=== PATIENT | female | born 2000 | race Two or more races ===

== ENCOUNTER 2025-05-16 11:04 | Emergency (ER) | payer OTHER, SELFPAY ==
[2025-05-16 11:27] VITALS: BP 156/119; PULSE 87; TEMP 36.7; O2SAT 94; BMI 31.2
[2025-05-16 13:10] VITALS: BP 140/92
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
[2025-05-16] MEDS: METHOCARBAMOL 500 MG TABLET PO (13:35)
[2025-05-16] MEDS: IBUPROFEN 600 MG TABLET PO (13:35)
--- OUTSIDE RECORDS SUMMARY | 2025-05-16 13:39 | XMS_ITS | Data Portability ---
Author Organization CHELY - Nile Duncan [facility], [facility]_PROV OP DIAB EDUCATION_NOVI Address [address] [address] [address] [place] [address] Assessment Encounter Date Assessment Date Assessment LastModified by Organization Details LastModified Time 10/02/2024 10/02/2024 Risks of Mirena discussed, mech of action discussed, infection risk confined to first 3 months especially the first 3 weeks after placement. Faculty: Resident's notes reviewed, pt seen and examined, agree with findings and plans Wellington Lara MDlvoutsosNot uhztunlep45/20/2025 16:17:10/09/2024Faculty: Resident's notes reviewed, pt seen and examined, agree with findings and plans, present for entire procedure Wellington Lara MDlvoutsosNot amjlzvhxj91/27/2025 14:31:Faculty: Resident's notes reviewed, pt seen and examined, agree with findings and plans Wellington Lara MD lvoutsosNot ohmlcghtm94/17/2025 14:49:12 Plan of Treatment Reminders Order DateSubmit DateProviderLast Modified ByOrganization DetailsLast Modified TimeDetailsAppointmentsNone recorded.LabNone recorded.ReferralNone recorded. ProceduresNone recorded.SurgeriesNone recorded.ImagingNone recorded.Medication OrdersMirena 21 mcg/24 hr (up to 8 years) 52 mg intrauterine zvvmsu9310/04/2024 10/09/20247954zrdiub0Vny ynemcxnpe21/07/2025 10:36:56 Patient TargetsNo targets recorded. Patient InstructionsNo instructions recorded. Reason for Referral None Reported. Results Created Date Observation Date Name Description Value Unit Range Abnormal Flag Note LastModifiedBy Organization Detail LastModifiedTime 08/07/2024 08/08/2024 CBC, PLATELET, N O DIFFERENTIAL WBC 9.2 x10e3/uL 3.4-10.8 normal Not AvailableLab[facility] ([facility]) [address] [facility], [place], [address], Ph ([phone] 04:27:40 5CBC, PLATELET, NO DIFFERENTIALRBC4.41r03d0/uL3.77-5.28normal Not AvailableLab[facility] ([facility]) [address] [facility] [place], [address], Ph ([phone] 04:27:40 5CBC, PLATELET, NO WKCCEUBLLRYOhgdoutguws93.9g/dL11.1-15.9 normalNot AvailableLab[facility] ([facility]) [address] [facility], [place], [address], Ph ([phone] 04:27:40 5CBC, PLATELET, NO BBZOQZXEFORHjstipimwvx78.1%34.0-46.6normal Not AvailableLab[facility] ([facility]) [address] [place], [address], Ph ([phone] 04:27:40 5CBC, PLATELET, NO IXOEEZIXOWAHLOR64yF87-28qpermfChz AvailableLabcorp ([facility]) [address] [place], [address], Ph ([phone] 04:27:40 5CBC, PLATELET, NO EETTAVTOVGNXQYM74.1pg26.6-33.0normalNot AvailableLab[facility] ([facility]) [address] [place], [address], Ph ([phone] 04:27:40 5CBC, PLATELET, NO SYYTADDHSEMONKDO41.0g/dL31.5-35.7normalNot AvailableLab[facility] ([facility]) [address] [place], [address], Ph ([phone] 04:27:40 5CBC, PLATELET, NO KEBZHMHOBJKZCOD92.7%11.7-15.4Not Available [facility] ([facility]) [address] [place], [address], Ph ([phone] 04:27:40 5CBC, PLATELET, NO ZPURVULXBJUAxehpjvkup760q31w5/mR423-299 normalNot AvailableLab[facility] ([facility]) [address] [place], [address], Ph ([phone] 04:27:40 5CBC, PLATELET, NO DIFFERENTIALNRBCNPNot AvailableLab[facility] ([facility]) [address] [place], [address], Ph ([phone] 04:27:40 5CT, NG, TRICH VAG BY NAAchlamydia by NAANEGATIVEnegativeNot AvailableLab[facility] ([facility]) [address] [place], [address], Ph ([phone] 16:09:06 5CT, NG, TRICH VAG BY NAAgonococcus by NAANEGATIVEnegativeNot AvailableLab[facility] ([facility]) [address] [place], [address], Ph ([phone] 16:09:06 5CT, NG, TRICH VAG BY NAAtrich vag by NAANEGATIVEnegativeNot AvailableLab[facility] ([facility]) [address] [place], [address], Ph [phone] 16:09:06 Result Notes None recorded. Problems Name Problem SNOMED Code Status Onset Date Resolution Date Notes Provider Name and Address Organization Details Recorded Time 03508872 Completed 03/11/2024 08/24/2024 ROXANNA ZELAYA MD [address] [place], [address], [facility]08/24/2024 06:04:57Late entry into [id number] Nqtece6403/11/2024arelis Coffey DO [address] [place], [address], [facility]03/11/2024 15:42:42High risk ptjkwhier76699718Qjozvixcc 03/11/2024arelis Coffey DO [address] [place], [address], [facility]03/11/2024 15:41:10High risk aahiwjvor29565818Sqjxsp 4Carelis Coffey DO [address] [place], [address], [facility]03/11/2024 15:41:10Group B Streptococcus carrier [id number]/27/2024Urine GBS + on urinalysis at [facility] 01/08, requested records 03/11 for sensitivities due to penicillin allergy 2TM Urine Culture GBS+ for colonization Will plan to treat with Ancef (secondary to PCN allergy)Tosha Coffey DO [address] [place], [address], [facility]05/13/2024 13:40:27Group B Streptococcus carrier [id number]/27/2024Urine GBS + on urinalysis at [facility] 01/08, requested records 03/11 for sensitivities due to penicillin allergy 2TM Urine Culture GBS+ for colonization Will plan to treat with Ancef (secondary to PCN allergy)Tosha Coffey DO [address] [place], [address], [facility]05/13/2024 13:40:27Insufficient [id number] Ykgepo6703/11/2024New OB visit on 03/11 at 16.2 weeks, 1 prior visit at [facility] on 02/07Mehudson Benjaminmer DO [address] [place], [address], [facility]04/08/2024 16:30:35 Problem Notes None recorded. Procedures Surgical History Date Name Laterality Status Provider Name and Address Organization Details Recorded Time 10/09/2024 Mirena insertion arm completedCamgracia Lao, DO [address] [place], [address], [facility]10/09/2024 14:11:01003/11/2024CM - Brief Face to Face VisitcompletedCorrina Sinha, DIRECTOR INFORMATION SECURITY [address] [place], [address], [facility]03/11/2024 15:20:57003/11/2024OB Ultrasound 2nd Trimester completedCalliolayinka Alexx DO [address] [place], [address], [facility]03/11/2024 15:25:5307ate of Last Pap Smear completedCalpetra Hutchinsonl DO [address] [place], [address], [facility]03/11/2024 14:11:04007/16/2019Reconstruction of nose completedCallie Alexx DO [address] [place], [address], [facility]03/11/2024 14:14:17007/16/2017tonsillectomycompletedCallie Alexx DO [address] [place], [address], [facility]03/11/2024 14:14:3401ppendectomycompletedCallie Alexx DO [address] [place], [address], [facility]03/11/2024 14:13:42 Imaging Results None recorded. Procedure Notes None recorded. Medical Equipment None Reported. Allergies Allergen ID Allergen Name Allergen Category Reaction Reaction Severity Criticality Documentation Date Start Date Code Code System Note Provider Name and Address Organization Details Recorded Time 726178 Product containing penicillin (product) m edication Not available Not available Not mtxcyegbd08/27/0758728315570MCUQTYrujoKnttlt Angell DO [address], [place], [address], [facility]03/11/2024 14:22:57 Medications Name Sig Start Date Stop Date Status Note LastModified by Organization Details LastModified Time Mirena 21 mcg/24 hr (up to 8 years) 52 mg intrauterine device Take 1 device by intrauterine route. 10/20/2024 activeNot AvailableNot AvailableNot Availablemethocarbamol 500 mg tablettake 1 tablet by mouth once daily03/11/2024ompletedNot AvailableNot AvailableNot Availableacetaminophen 325 mg tabletactiveNot AvailableNot AvailableNot Availablecetirizine 10 mg tablettake 1 tablet by mouth once daily03/11/2024 completedNot AvailableNot AvailableNot Availablesucralfate 1 gram tablettake 1 tablet by mouth twice a day 30 MINUTES PRIOR TO MEALS03/11/2024ompletedNot AvailableNot AvailableNot Availableondansetron HCl 4 mg tablettake 1 tablet by mouth once daily03/11/2024ompletedNot AvailableNot AvailableNot Available famotidine 40 mg tablettake 1 tablet by mouth twice a day 30 MINUTES PRIOR TO MEALS03/11/2024ompletedNot AvailableNot AvailableNot Availableterconazole 0.8 % vaginal cream03/11/2024ompletedNot AvailableNot AvailableNot Available metronidazole 500 mg tabletTAKE 1 TABLET BY MOUTH EVERY 12 HOURS FOR 7 DAYS 03/11/2024ompletedNot AvailableNot AvailableNot Availablefamotidine 20 mg tabletTake 1 tablet twice a day by oral route.activeNot AvailableNot Available Not Availabledocusate sodium 100 mg capsuleactiveNot AvailableNot AvailableNot Availablemupirocin 2 % topical daikczii47/27/2024ompletedNot AvailableNot AvailableNot Availableibuprofen 600 mg tabletactiveNot AvailableNot AvailableNot Availablefluticasone propionate 50 mcg/actuation nasal spray,suspensioninstill 1 spray into each nostril once daily03/11/2024ompletedNot AvailableNot Available Not AvailableUnisom (doxylamine) 25 mg tabletTake 1 tablet every day by oral route.07/02/2024ctiveNot AvailableNot AvailableNot AvailableTylenol Extra Strength 500 mg tabletTake 2 tablets every 6 hours by oral route as needed. 04/10/2024ctiveNot AvailableNot AvailableNot Availableenoxaparin 40 mg/0.4 mL subcutaneous syringeactiveNot AvailableNot AvailableNot AvailableFeroSul 325 mg (65 mg iron) tabletactiveNot AvailableNot AvailableNot AvailablePrenatal 28 mg- 800 mcg tabletTake 1 tablet every day by oral route, for .03/11/2024 activeNot AvailableNot AvailableNot Availablepyridoxine (vitamin B6) 10 mg tabletTake 1 tablet every day by oral route.07/02/2024ctiveNot AvailableNot AvailableNot Available Vitals Date Recorded Body height Body mass index (BMI) Body weight Heart rate Systolic And Diastolic Provider Name and Address Organization Details Last Updated DateTime 08/21/2024 152.4 cm 32.3 kg/m2 06720.82 g 121 /min 141/91 mm[Hg] [facility] 08/21/2024 14:24:15 Date Recorded Body height Body mass index (BMI) Body weight Heart rate Systolic And Diastolic Provider Name and Address Organization Details Last Updated DateTime 09/03/2024 152.4 cm 28.1 kg/m2 61113.3 g 96 /min 119/75 mm[Hg] Nakia Ifeoma [facility] 09/03/2024 14:19:24 Date Recorded Body height Body mass index (BMI) Body weight Heart rate Systolic And Diastolic Provider Name and Address Organization Details Last Updated DateTime 10/02/2024 152.4 cm 28.3 kg/m2 11100.25 g 78 /min 120/83 mm[Hg] [facility] 10/02/2024 15:57:56 Date Recorded Body height Body mass index (BMI) Body weight Heart rate Systolic And Diastolic Provider Name and Address Organization Details Last Updated DateTime 10/09/2024 152.4 cm 28.1 kg/m2 67135.3 g 102 /min 138/84 mm[Hg] [facility] 10/09/2024 13:33:14 Date Recorded Body height Body mass index (BMI) Body weight Heart rate Systolic And Diastolic Provider Name and Address Organization Details Last Updated DateTime 10/30/2024 152.4 cm 28.5 kg/m2 83233.49 g 94 /min 117/80 mm[Hg] Chata Odom [facility] 10/30/2024 13:59:32 Social History Question Answer Notes LastModified by Organization D etails LastModified Time Tobacco Smoking Status Never Smoker Mabel araujo, [facility]07/22/2024 16:04:28Last SDOH Assessment Date:03/11/2024 API-27Information not /27/2024In The Last 12 Months, Was There A Time When You Needed To See A Doctor But Could Not Because Of Cost?Ixggqmwo051 Information not xdoumtyaw39/27/2024In The Past 12 Months Has The Electric, Gas, Oil, Or Water Company Threatened To Shut Off Services In Your Home?NoAPI-27 Information not hlmbvpnmy45/27/2024In The Last 12 Months, Did You Ever Eat Less Than You [place] You Should Because There Wasn???t EnoughMoney For Food?NoAPI-27 Information not zdxjgasew81/27/2024o You Have The Household Supplies You Need? Things Like Clothes, Shoes, Blankets, Mattresses, Diapers, Toothpaste, And Shampoo?YesAPI-27Information not ecifweqwp76/27/2024re Any Of Your Needs Urgent?NoAPI-27Information not lmetcxkay24/27/2024o Problems Caring For Children Or Other Family Members Make It Difficult For You To Work Or Study?No API-27Information not /27/2024In The Last 12 Months Did You Skip Medications To Save Money?NoAPI-27Information not bihfifxya73/27/2024In The Last 12 Months, Have You Ever Had To Go Without Health Care Because You Didn???t Have A Way To Get There?NoAPI-27Information not kdzlpywyp94/27/2024re You Worried That In The Next 2 Months You May Not Have Stable Housing?NoAPI-27 Information not ubrgvfnta56/27/2024o You Feel Physically And Emotionally Unsafe Where You Currently Live?Ngmaofidc914Rxepwlzvpmo not jvcgavdlg62/27/2024 You Want Help Finding Or Keeping Work Or A Job?NoAPI-27Information not available 03/11/2024 You Want Help With School Or Training? For Example, Starting Or Completing Job Training Or Getting A High School Diploma, GED, Or Equivalent?No API-27Information not xsjzijkvg87/27/2024o You Often Feel Lonely?NoAPI-27 Information not ituwegfqq77/27/2024o You Want Help With Any Of Your Needs?No API-27Information not rppfimgff35/27/20240. Information Provided By :Patient API-27Information not dvsysdqib38/27/98608o) Does The Patient/Caregiver/Family Report The PATIENT Having Any Of These NEW Symptoms Such As Cough?NoAPI-27 Information not nolwqxfjl95/27/02494c) Does The Patient/Caregiver/Family Report The PATIENT Having Any Of These NEW Symptoms Such As Diarrhea?NoAPI-27 Information not phdmtaymg85/27/08917v) Does The Patient/Caregiver/Family Report The PATIENT Having Any Of These NEW Symptoms Such As Fever/chills?NoAPI-27 Information not /27/01750l) Does The Patient/Caregiver/Family Report The PATIENT Having Any Of These NEW Symptoms Such As Nasal Congestion/Runny Nose?NoAPI-27Information not lcduhvmhh97/27/30644b) Does The Patient/Caregiver/Family Report The PATIENT Having Any Of These NEW Symptoms Such As Respiratory Distress (acute)?NoAPI-27Information not adyaachib19/27/2024 1f) Does The Patient/Caregiver/Family Report The PATIENT Having Any Of These NEW Symptoms Such As Rash?NoAPI-27Information not xsqsedpdz48/27/25657o) Does The Patient/Caregiver/Family Report The PATIENT Having Any OTHER NEW Symptoms (list)? If No NEW Symptoms, Enter ???No???NoAPI-27Information not available 03/11/2024What Is Your Relationship Status?SingleAPI-27Information not available 03/11/2024 Sex: Female Functional Status None recorded. Mental Status None recorded. Family History Relationship Description Onset Age of this Age Resolved Age Notes LastModified by Organization Details LastModified Time Father Diabetes mellitus Unsure if T1 or 2, paternal rydptiomdlf5Tnt peppphzym11/27/2024 14:12:41 Medical History Condition Response allergies Y urinary tract infection Y bladder problems Y Gynecological History Statement/Question Response Abnormal Pap N Flow Moderate Date of LMP 11/18/2023 History of sexual abuse? N Number of Sexual Partners in Lifetime Fe wer than 5 On BCP's at Conception? N STIs/STDs N HPV Vaccine Age at First Sexual Ultcusgjjdh06Wspdrkjq of Flow (days)5Age at Qefbgkgu98Dfv at First Ehcyr13Kzewmdhof of Cycle (Q days)Sexually Active?YMenses MonthlyNDate of Last Pap Smear02/08/2024LMPApproximateCrampsYResult of Last PapWNL Obstetrics History GPAL:G 1 P 1 0 0 1 Type Value Full Term 1 Living 1 Total 1 Immunizations Vaccine Type Date Status Note Provider Nam e and Address Organization Details Recorded Time Tdap 07/03/2024 completed Jacinto Colón MD [address], [place], [address], [facility]07/11/2024 16:57:43Influenza, MDCK, quadrivalent, PF 07/02/2024ompleteThompson Colón MD [address], [place], [address], [facility]07/11/2024 16:57:43 Past Encounters Encounter ID Performer Location Encounter Start Date Encounter Closed Date Diagnosis/Indication Diagnosis SNOMED-CT Code Diagnosis ICD10 Code Diagnosis IMO Codes Diagnosis Note [id number] Shandra Chaudhry MD [facility] [address] [address] 03/11/2024 13:53:05 03/11/2024 15:35:00 High risk 67475510 O09.92 - 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 Send to [facility] for dating.- Vitals: 113/76- BMI: 27.9- STI: 1TM urine G/C/T negative ([facility] 01/08) - Rubella:- Rh:- Hgb: *TM *- Electrophoresis:- Pap: Normal 01/08- Glucose:- Imaging:- Genetics:- msAFP:- Vaccinations:- Urine GBS + on urinalysis at [facility] 01/08, requested records 03/11 for sensitivities due to penicillin allergy - New OB labs, Panorama, Horizon collected today- Referral to [facility] for dating US given RTC 4 weeks, msAFP at next visitAntenatal tvzzydmkw297889671A77.89 If patient has a history of a positive result on one of these, use the diagnosis to order the test,not this screening code. I.E. if a patient has anemia diagnosis, use that diagnosis code to order the CBC.Reproductive care management 517304431R25.430 Gestation period, 16 zqfmn85879371H6U.16 Insufficient bvnu5895528302229P25.32 New OB visit on 03/11 at 16.2 weeks, 1 prior visit at [facility] on 02/07Group B streptococcus carrier complicating ruhhidefs159800749561901W73.820 Urine GBS + on urinalysis at [facility] 01/08, requested records 03/11 for sensitivities due to penicillin [id number] [place], [facility] [address] [address] 03/11/2024 14:55:32003/11/2024 15:23:21Ughbulabv19252618L61.1 Xjaeecqcmi320381418V86.89 [id number] Clarke, [facility] [address] [address] 04/10/2024 10:58:39004/10/2024 12:05:13High risk nedeyvkil71273589T34.92 - 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 sdtylcdrc357409217424779O28.820 - Urine culture (03/11): 0723-8145 STREP AGALACTIAE- +UA at [facility] 01/08- Denies any dysuria or hematuria- Will plan to treat with Ancef (secondary to PCN allergy during labor) prsxxgtzc254871295N90.3 Gestation period, 19 anvyw71771388O9B.19 [id number] Chaudhry [facility] [address] [address] 05/13/2024 13:00:261 14:26:53High risk vvrrizkkt29158558U02.892 D/t SDoH, GBS carrier - Dating: STEVEN 08/30/24 based on biometry at [facility] on 03/14/40- Vitals:- BMI: 27.9- STI: 1TM neg ([facility] records scanned into chart)- Rubella: equivocal- Rh: Pos- Hgb: 1TM 12.5- Electrophoresis: AA- Pap: 01/08: NILM ([facility] records scanned into chart)- Glucose: 1hr GTT collected today- Imaging: complete and WNL, EFW 36%, anterior placenta, no previa, 3VC- Genetics: LR male, horizon 10/17 neg- msAFP: Neg- Vaccinations:Pt considering ABC delivery 1hr GTT todayRTC 4 weeks, 28 week labs and vaccines at next visitGroup B streptococcus carrier complicating pfzjtoldw059348912673080J43.820 - Urine culture (03/11): 2876-7239 STREP AGALACTIAE- +UA at [facility] 01/08- Denies any dysuria or hematuria- Will plan to treat with Ancef (secondary to PCN allergy - rash - low risk for anaphylaxis) duringlaborAntenatal screening 189699053T11.89 O09.892 Gestation period, 24 xhuqg908310860S5Y.24 [id number] Thomas, [facility] [address] [address] 07/02/2024 14:37:10109/02/2023 15:45:15High risk noezhzucr72838247W69.892 D/t SDoH, GBS carrier Dating: STEVEN 08/30/24 based on biometry at [facility] on 03/14/24Vitals: 133/84, elevated from previous baselineBMI: 27.9STI: 1TM neg ([facility] records scanned into chart) Rubella: Equivocal (will need MMR at delivery)Rh: PositiveHgb: 1TM 12.5, 2TM 11.5Electrophoresis: AAPap: 01/09/24: NILM ([facility] records scanned into chart) Glucose: 1 hr GTT wnl (100)Anatomy US (04/15): complete, wnl, EFW36%, anterior placenta, no previa, 3VC, MALLORY wnl, CL 34.6Genetics: 10/17 negative, LR M, msAFP negVaccinations: Flu and Tdap administered today TDap and Influenza vaccinations offered today, patient yeyokqzij9BS labs drawn today. RTC 2 weeks. 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 cidjlvbzz157445769795854C78.820 - Urine culture (03/11): 1290-8618 STREP AGALACTIAE- +UA at [facility] 01/08- Denies any dysuria or hematuria- Will plan to treat with Ancef (secondary to PCN allergy - rash - low risk for anaphylaxis) duringlaborAdministration of diphtheria, pertussis, and tetanus ynpjdxr748022569G50 Administration of influenza wrgauxu99185113R16 Routine htbj820043603J60.90 Nausea and vomiting in fukeobfll0336812958A81.9 Daily nausea, no ibyidlkkLojwteilv13816785D85 Daily heartburn, especially when laying downGestation period, 31 kccui11108010 Z3A.31 Lower abdominal ewkc06551078Y79.30 Right sided abdominal painLikely 2/2 movementDiscussed Tylenol and warm baths. May try hot packs but not on belly.[id number] [facility] [address] [address] 07/22/2024 15:58:55007/22/2024 17:20:19High risk zshjdwidl20272215S45.892 D/t SDoH, GBS carrier Dating: STEVEN 08/30/24 based on biometry at [facility] on 03/14/24Vitals: 133/84, elevated from previous baselineBMI: 27.9STI: 1TM neg ([facility] records scanned into chart), 3TM negRubella: Equivocal (will need MMR at delivery)Rh: PositiveHgb: 1TM 12.5, 2TM 11.5Electrophoresis: AAPap: 01/09/24: NILM ([facility] records scanned into chart)Glucose: 1 hr GTT wnl (100)Anatomy US (04/15): complete, wnl, EFW36%, anterior placenta, no previa, 3VC, MALLORY wnl, CL 34.6Genetics: 4/4 negative, LR M, msAFP negVaccinations: Flu and Tdap administered 07/02, discussed RSV at outside pharmacy, patient agreeable RTC 2 weeks. for G/C/TGroup B streptococcus carrier complicating [id number] - Urine culture (03/11): 2959-2616 STREP AGALACTIAE- +UA at [facility] 01/08- Denies any dysuria or hematuria- Will plan to treat with Ancef (secondary to PCN allergy - rash - low risk for anaphylaxis) tzaeuxjbivoNotherffv94179768W65 Daily heartburn, especially when laying downRepeat rx PepcidGestation period, 34 sxobt62070057Q0N.34 [id number] Portillo [facility] [address] [address] 08/07/2024 15:22: 16:37:39High risk itnwerhps85777535B61.892 High risk due to SDoH. Dating: STEVEN 08/30/24 based on biometry at [facility] on 03/14/24.Vitals: 133/84, elevated from previous baselineBMI: 27.9STI: 1TM neg ([facility] records scanned into chart), 3TM negRubella: Equivocal (will need MMR at delivery)Rh: PositiveHgb: 1TM 12.5, 2TM 11.5Electrophoresis: AAPap: 01/09/24: NILM ([facility] records scanned into chart)Glucose: 1 hr GTT wnl (100)Anatomy US (04/15): complete, wnl, EFW36%, anterior placenta, no previa, 3VC, MALLORY wnl, CL 34.6Genetics: 4/4 negative, LR M, msAFP negVaccinations: Flu and Tdap administered 07/02, discussed RSV at outside pharmacy, patient agreeable GCT and 3TM Hgb collected today. 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 [id number] - Urine culture (03/11): 4803-3345 STREP AGALACTIAE- +UA at [facility] 01/08- Denies any dysuria or hematuria- Will plan to treat with Ancef (secondary to PCN allergy - rash - low risk for anaphylaxis) [id number] Daily heartburn, especially when laying downRepeat rx PepcidAntenatal screening [id number] Gestation period, 36 onjuq66734328Z8X.36 [id number] Voutsos, [facility] [address] [address] 08/21/2024 13:40:23008/21/2024 15:26:08High risk ssvpgnccl75876595N01.892 High risk due to SDoH. Dating: STEVEN 08/30/24 based on biometry at [facility] on 03/14/24.BMI: 27.9STI: 1TM neg ([facility] records scanned into chart), 3TM negRubella: Equivocal (will need MMR at delivery)Rh: PositiveHgb: 1TM 12.5, 2TM 11.5, 3TM 11.9Electrophoresis: AAPap: 01/09/24: NILM ([facility] records scanned into chart)Glucose: 1 hr GTT wnl (100) Anatomy US (04/15): complete, wnl, EFW36%, anterior placenta, no previa, 3VC, MALLORY wnl, CL 34.6Genetics: 10/17 negative, LR M, msAFP negVaccinations: Flu and Tdap administered 07/02, discussed RSV at outside pharmacy, patient agreeableGBS: positive (GBSuria, see below) -LOF/-VB/-CX/+FMRTC in 1 week if discharged from triageGroup B streptococcus carrier complicating wckkmvmgl609279794361408Z48.820 - Urine culture (03/11): [phone] STREP AGALACTIAE- +UA at [facility] 01/08- Denies any dysuria or hematuria- Will plan to treat with Ancef (secondary to PCN allergy - rash - low risk for anaphylaxis) skutsqrmfeeGmcpfsskp72079928W80 - Daily heartburn, especially when laying down- Repeat rx PepcidGestation period, 38 ouhul02469148P8N.38 Elevated blood-pressure reading without diagnosis of xfooxvsycjwu822965096U16.0 - BP on arrival 141/91 mmHg- Asymptomatic- Will send to triage for rule-out PreE [id number] Thomas, [facility] [address] [address] 09/03/2024 14:09:16009/03/2024 15:51:[id number] Voutsos, [facility] [address] [address] 10/02/2024 15:47:34010/02/2024 16:27:29Postnatal care wapnhz497267277F94.2 [id number] Patient is a 24 y/o s/p presenting on 08/24 presenting for her 6-week visit. Patient's was complicated by hemorrhage(1506 cc) and IAI. Patient did receive venofer and 24-hours of antibiotics Baby: Baby is doing wellBonding: Bonding well and plenty of family support Bleeding: Little to no intermittent, vaginal spottingBowel/Bladder: Full functioning returnedContraception: Desires Mirena IUDBreastfeeding/Bottle: Bottle-feedingEPDS: 2 Patient will have Mirena IUD placement [id number] Voutsos, [facility] [address] [address] 10/09/2024 13:19:55010/09/2024 14:21:19Insertion of hormone releasing intrauterine contraceptive htqbvy008948380M16.430 [id number] -Mirena IUD placed today-urine test [id number] Voutsos, [facility] [id number] [address] 10/30/2024 13:48:4404 14:30:09Intrauterine contraceptive device in situ [id number] [id number] SSE: no abnormal discharge/lesions, IUD strings visible/in placeNo other concerns at this timeRTC in 1 year for annual or sooner if indicated, disc increased risk of infection in first 3 monthsafter IUD insertion Health Concerns Section Related Observation LastModified by Organization Detai ls LastModified Time None Recorded Concern Status LastModified by Organization Details LastModified Time None Recorded Advance Directives Directive None Recorded Payers Insurance Date Sequence Insurance Name Policy Number Policy Friedman Covered Member ID Friedman Member ID Guarantor Name 02/23/2025 1 [facility] (MEDICAID HMO) [facility] Marion Woodall [id number] Marion [id number] REVIEW Rocio Macjeovanychristine Woodall Notes Date Note Type Note Provider Name and Address Orga nization Details Recorded Time 10/02/2024 text/html ROS as noted in the HPI Patient is a 24 y/o s/p presenting on 08/24 presenting for her 6-week visit. Patient's was complicated by hemorrhage(1506 cc) and IAI. Patient did receive venofer and 24-hours of antibiotics. Baby: Baby is doing wellBonding: Bonding well and plenty of family support Bleeding: Little to no intermittent, vaginal spottingBowel/Bladder: Full functioning returnedContraception: Desires Mirena IUDBreastfeeding/Bottle: Bottle-feedingEPDS: 2 Lionel Lara MD [address] [place], [address], [facility]10/02/2024 16:17:text/htmlROS as noted in the HPI Patient is a 24 y/o s/p on 08/24 presenting for Mirena IUD placement. Options for contraception were previously discussed with the patient and patient elected for IUD placement.Lionel Lara MD [address] [place], [address], [facility]10/09/2024 14:32:19010/30/2024text/htmlROS as noted in the HPI 24yo presenting for string check s/p Mirena IUD placement 10/09/24. Today pt reports doing well. Reports some spotting with IUD placement, currently on her period (LMPapproximately 10/24/23), slightly heavier than usual, no other concerns or complaints at this time.Lionel Lara MD [address], [place], [address], [facility]10/30/2024 14:50:26 OBGyn Episode Ob Episode Information Episode Created Date Number of Fetuses Patient Bloodtype Patient rh Status Prepregnancy Weight lbs Domestic Partner Domestic Partner Phone Father Name Channel Marketing Coordinator Status 03/11/2024 1 O Positive CLOSED Fetus Data First Name Last Name Admitted to NICU Weight (g) Sex Living Outcome Pediatric Complications Fetus ID Race Codes Race Delivery Type Buster falseMtrueFull Term [id number] Problems Problem Notes Problem Name Start Date End Date Resolution Snomed Code Not e High risk 03/11/2024 [id number] B Streptococcus [id number] GBS + on urinalysis at [facility] 01/08, requested records 03/11 for sensitivities due to penicillin dudxfpq6OW Urine Culture GBS+ for colonizationWill plan to treat with Ancef (secondary to PCN allergy) Steven Calculation Initial Steven Date Initial Exam Date Initial Exam Provider Initial Ultrasound Date Last Menstrual Period Date Ultra Sound Weeks Gestation 08/30/2024 03/11/2024/ Eighteen To Twenty Week Steven Update Ultra Sound Date Fundal Height At Umbil Quickening Date Ultra Sound Latest Weeks Gestation Final Steven Confirmed By Final Steven Confirmed Date Final Steven Date Ultra Sound Latest Days Gestation 00 Pre- Flowsheet Flowsheet Date 03/11/2024 Nieto Score Blood Edema Fundus Height Fundus Units Glucose Ketones Leukocytes Nitrite Labor Signs Protein Cervic Dilation Cervic Effacement Cervic Station Type Weight in lbs Pre/Post Dialysis Refused BP Diastolic BP Location Tested BP Systolic BP Type Fetus Heart Rate Present Fetus Movement Comments Flowsheet Date 03/11/2024 Nieto Score Blood Edema Fundus Height Fundus Units Glucose Ketones Leukocytes Nitrite Labor Signs Protein Cervic Dilation Cervic Effacement Cervic Station 16cm Type Weight in lbs Pre/Post Dialysis Refused With clothes 143.806384354776 BP Diastolic BP Location Tested BP Systolic BP Type 76 L arm 113 sitting Fetus Heart Rate Present A 144 Present Fetus Movement Comments 23 year old presents fo r new OB visit, feels well. 1TM labs collected, referral for dating US with MFM sent. Office US completed, EGA 15.1 weeks, dated by approximate LMP on 11/17 as 16.2 weeks. Speculum exam with pap smear and STI screening completed at [facility] on 01/08. RTC 4 weeks. CAngell, PGY1 Flowsheet Date 04/10/2024 Nieto Score Blood Edema Fundus Height Fundus Units Glucose Ketones Leukocytes Nitrite Labor Signs Protein Cervic Dilation Cervic Effacement Cervic Station kxvdfyj45xyqcnpfxbnqaiw1+NegativeCrampingneg Type Weight in lbs Pre/Post Dialysis Refused With clothes 145.834087118368 BP Diastolic BP Location Tested BP Systolic BP Type 71 L arm 108 sitting Fetus Heart Rate Present A 140 Present Fetus Movement Comments -LOF/-VB/-CTX/+FM. Patient o tyra feels well, denies any complaints or concerns. She is complaining of some occasional cramping, rx for Tylenol sent. 1) msAFP drawn today. Otherwise, up-to-date on PNC. Results of 1TM labs were discussed with patient and FOB. 2) Anatomy US scheduled for 04/15. 2TM labs and 1hr GTT at next visit. Discussed with Dr. Hayes. vel DO PGY-3Faculty: pt seen with resident and agree with note, findings and plans. Cristal Hayes MD Flowsheet Date 05/13/2024 Nieto Score Blood Edema Fundus Height Fundus Units Glucose Ketones Leukocytes Nitrite Labor Signs Protein Cervic Dilation Cervic Effacement Cervic Station oqjykns35zjrdcqhfrbrhmb7+Negativeneg Type Weight in lbs Pre/Post Dialysis Refused With clothes 152.275330893607 BP Diastolic BP Location Tested BP Systolic BP Type 83 L arm 126 sitting Fetus Heart Rate Present A 145 Fetus Movement A Yes Comments -LOF/-VB/-CTX/+FM. Patient f eels well, no complaints or concerns today. Discussed ABC, pt is likely a candidate, will provide more information. 1hr GTT today. RTC 4 weeks, 28 week labs and vaccinations at that time. CAngell DO PGY1. Flowsheet Date 07/02/2024 Nieto Score Blood Edema Fundus Height Fundus Units Glucose Ketones Leukocytes Nitrite Labor Signs Protein Cervic Dilation Cervic Effacement Cervic Station ucejxcc79ycvjmilhjxmfmx9+NegativeBraxton Hicksneg Type Weight in lbs Pre/Post Dialysis Refused With clothes 157.875482732147 BP Diastolic BP Location Tested BP Systolic BP Type 84 R arm 133 sitting Fetus Heart Rate Present A 141 Present Fetus Movement A Yes Comments -LOF/-VB/-CTX/+FM 3TM labs c ollected today. Flu/TDap administered today. 1) Nausea- add B6/Doxylamine 2) Heartburn- Add pepcid 20mg BID 3) Right sided pain- discussed tylenol and warm baths. 4) RTC [address] Colón. Rosalio PGY- 1. Faculty note; pt seen & eval with resident and agree with above. Christopher Colón MD Flowsheet Date 07/22/2024 Nieto Score Blood Edema Fundus Height Fundus Units Glucose Ketones Leukocytes Nitrite Labor Signs Protein Cervic Dilation Cervic Effacement Cervic Station 1+52kchszqwzeivhgs5+Negativeneg Type Weight in lbs Pre/Post Dialysis Refused With clothes 160.861021629300 BP Diastolic BP Location Tested BP Systolic BP Type 88 L arm 142 sitting Fetus Heart Rate Present A 130 Present Fetus Movement A Yes Comments -LOF/-VB/-CTX/+FM. Routine P NC. Denies complaints. Flu/TDap administered last visit. Discussed RSV at outpatient pharmacy, patient agreeable. Cont to experience Heartburn, did not recieve Pepcid given issues with Insurance. RX sent again. GBSuria, discusssed Ancef in labor given PCN allergy. RTC 2 weeks for G/C/T. Elevated BP 142/88, pending repeat. snabati Faculty: pt seen with resident and agree with note, findings and plans. Cristal Hayes MD Flowsheet Date 08/07/2024 Nieto Score Blood Edema Fundus Height Fundus Units Glucose Ketones Leukocytes Nitrite Labor Signs Protein Cervic Dilation Cervic Effacement Cervic Station 1+79xkothnhrbatigw2+Aedfunavqnfpf4un43%-3 Type Weight in lbs Pre/Post Dialysis Refused With clothes 160.144661649514 BP Diastolic BP Location Tested BP Systolic BP Type 94 L arm 133 sitting Fetus Heart Rate Present A 138 Present Fetus Movement A Yes Comments -VB/-Ctx/-LOF/+FM. Routine P NC. Endorses episode of cramping about 1 week prior. Continues to experience heartburn. Rx for Pepcid resent to pharmacy, advised taking BID. 3TM Hgb and G/C/T drawn today. Maria L PGY2. RTC in 1 week.Faculty: Resident's notes reviewed, pt seen and examined, agree with findings and plans Wellington Lara MD Flowsheet Date 08/21/2024 Nieto Score Blood Edema Fundus Height Fundus Units Glucose Ketones Leukocytes Nitrite Labor Signs Protein Cervic Dilation Cervic Effacement Cervic Station 37cm Type Weight in lbs Pre/Post Dialysis Refused Without clothes 165.784138423004 BP Diastolic BP Location Tested BP Systolic BP Type 91 L arm 141 sitting Fetus Heart Rate Present A 140 Present Fetus Movement A Yes Comments 23yo @ 38.5 for routine PNC. -LOF/-VB/-CX/+FM. Overall doing well without complaint. Initial BP 141/91 mmHg, asymptomatic. Will send to triage for rule- out PreE. If discharged, RTC in 1 week. MD Delia OXH7Keyrspo: Resident's notes reviewed, pt seen and examined, agree with findings and plans Wellington Lara MD Menstrual History Last Menstrual Date Menses Monthly On Bcp Conception Prior Menses Frequency Hcg Plus Date Menarche Onset Age 0511/18/2023 false false 11 Genetic Screening And Infection History Question Response Note Patient's Age Will Be 35 Years Or Older At Estim ated Date of Delivery false Thalassemia (Welsh, Congolese, Mediterranean, Or Background): MCV < 80false Neural Tube Defect (Meningomyelocele, Spina Bifida, Or Anencephaly)false Congenital Heart DefecttrueFOB brother had a balloon put in his heart as a childDown SyndromefalseTay-Sachs (eg, Tenriism, Cajun, Equatorial Guinean-[place])false Galdino DiseasefalseSickle Cell Disease Or Trait ()falseHemophilia Or Other Blood DisordersfalseMuscular DystrophyfalseCystic Fibrosisfalse [place]'s ChoreafalseMental Retardation/AutismtrueFOB suspected to have autism, FOB father, MOB 2nd degree relativesIf Yes, Was Person Tested For Fragile X?falseOther Inherited Genetic Or Chromosomal DisorderfalsePatient Or Baby's Father Had A Child With Defects Not Listed AbovefalseRecurrent Loss, Or A StillbirthfalseMedications (including Supplements, Vitamins, Herbs, OTC Drugs), Illicit/Recreational Drugs, AlcoholfalseIf Yes, Agent(s) And Strength/DosagefalseAny Other Genetic HistoryfalseLive With Someone With TB Or Exposed To TBfalsePatient Or Partner Has History Of Genital Herpes falseRash Or Viral Illness Since Last Menstrual PeriodfalseHistory Of STD, Gonorrhea, Chlamydia, HPV, SyphilisfalseOther Infection HistoryfalseHistory of HIVfalseHistory of HepatitisfalsePrior GBS-infected childfalseHemoglobinopathy Or CarrierfalseOther Structural DefectfalseRecent Travel History Outside of Countryfalse Delivery Information Delivery Date Delivery Type Labor Anesthesia Weeks Gestation Incision Type Labor Labor Length Hrs Delivered By Post Complications Tubal Sterilization Discharge Date Comments 08/24/2024 InducedRegional-Uozizpph24.1fJayla Armenta RES; Roxanna Zelaya RES HemorrhageIOL for gHTN, had cook catheter, pitocin, AROM, epidural, and progressed to completed viable male, complicated by IAI immediately prior to delivery s/p 1 dose of Abx and PPH of 1500 after delivery 2/2 tone and laceration. 2nd degree perineal laceration. Apgars 9 and 9. Discharge Information Feeding Method Contraceptive Method Maternal HG B and HCT Levels
--- OUTSIDE RECORDS SUMMARY | 2025-05-16 13:39 | XMS_ITS | Referral Summary ---
Author Organization [place] ([facility] 02/03/2024) ([place]) Address [address] [place] [address] Care Team Providers Care Serologist Name Role Phone Mark Low MD Primary Care Provider + Allergies Active AllergyReactionsCriticalityNoted DateCommentsAmoxicillinPenicillinsRash High12/15/2012 Medications * This document contains information received from the source organization and may not represent a complete record from that organization. MedicationSigDispense QuantityRefillsLast FilledStart DateEnd DateStatus cetirizine (ZYRTEC) 10 MG PO tablet Indications:Allergic dermatitistake 1 Tab by mouth once daily. 90 Tab Active fluticasone (FLONASE) 50 MCG/ACT NASAL Suspension place 1-2 Sprays into both nostrils twice daily. 18.2 mL Active Active Problems ProblemNoted DateDiagnosed DateNasal gnefdvkyjtr97/14/2020Deviated nasal septum 06/28/2020 Immunizations ImmunizationAdministration DatesNext DueDTaP (Infanrix) 25-58-101, 12/09/2003,03/02/2003,2002,2002HIB (PedvaxHib) (3-dose, PRP-OMP) 09/02/2003,03/02/2003,2002,2002HPV, Quadrivalent (HPV4) (Gardasil) 10/03/2013,11/01/2012,09/03/2012Hep A (Ped/Adol)08/14/2008,05/14/2007Hep B (Ped/Adol)03/02/2003,2002,2002INFLUENZA SHOT TIV (INJECT)08/14/2008 IPV (Polio)05/14/2007,03/02/2003Influenza Shot TIV (Inject P-Free)05/11/2016, 05/12/2015,03/19/2014,04/30/2013,03/04/2012Influenza Rtihybd5608/14/2008, 05/14/2007,06/14/2006,04/30/2006Influenza Vaccine, injection, quadrivalent (Preservative-Free)10/01/2019MENINGOCOCCAL CONJUGATE (MCV4P) (MENACTRA) 10/03/2013MMR (Measles, Mumps, Rubella)05/14/2007,09/02/2003Meningococcal Oligosaccharide (MCV4O) (Menveo)04/07/2019,10/03/2013OPV (Polio Historical) 2002,2002Pneumococcal (Peds Only,PCV7)(Prevnar) (Historical) 09/02/2003,03/02/2003,2002,2002Pneumococcal Polysaccharide (PPSV23)(Pneumovax)03/02/2003TDaP (Adol/Adult)10/03/2013Varicella (Varivax) 08/14/2008,09/02/2003 Social History Tobacco UseTypesPacks/DayYears UsedDateSmoking Tobacco: NeverSmokeless Tobacco: Never Tobacco Cessation:Counseling Given: Yes Alcohol UseStandard Drinks/WeekCommentsNo0 (1 standard drink = 0.6 oz pure alcohol)CommentsNoSex and Gender InformationValueDate RecordedSex Assigned at KwwwxZgivyq93/22/2020 2:50 PM EDTLegal QneZghndb41/11/2016 1:54 AM EDTGender RqgajcylLdpkja07/22/2020 2:50 PM EDTSexual OrientationChoose not to aunrxdmf95/22/2020 2:50 PM EDT Last Filed Vital Signs Vital SignReadingTime TakenCommentsBlood Qryqmaem339/9706/28/2020 4:26 PM EST Quuah532606/28/2020 4:26 PM GJBUyqkxaffhwz13.9 ??C (98.4 ??F)03/01/2021 11:37 AM EDTRespiratory Jmmb949708/29/2019 4:26 PM ESTOxygen Srqlodhlih402%06/28/2020 4:26 PM ESTInhaled Oxygen Concentration--Upzooo46.7 kg (138 lb 3.2 oz)03/01/2021 11:37 AM NKIGtcdgd215 cm (5' 3 )03/01/2021 11:37 AM EDTBody Mass Index24.48 03/01/2021 11:37 AM EDT Plan of Treatment Not on file Care Teams Team MemberRelationshipSpecialtyStart DateEnd Date Mark Low MD PCP - DpaytibKuspnnbexd71/23/20
--- OUTSIDE RECORDS SUMMARY | 2025-05-16 13:39 | XMS_ITS | Clinical Summary ---
Author Organization [employer] ([facility] 02/03/2024) ([place]) Address [address] [place] [address] Care Team Providers Care Hospitality Aide Name Role Phone Mark Low MD Primary [...] mL Active Active Problems ProblemNoted DateDiagnosed DateNasal uokcesfrjwm78/14/2020Deviated nasal septum 06/28/2020 Immunizations ImmunizationAdministration DatesNext DueDTaP (Infanrix) 25-58-101, 12/09/2003,03/02/2003,2002,2002HIB (PedvaxHib) (3-dose, PRP-OMP) 09/02/2003,03/02/2003,2002,2002HPV, Quadrivalent (HPV4) (Gardasil) 10/03/2013,11/01/2012,09/03/2012Hep A (Ped/Adol)08/14/2008,05/14/2007Hep B (Ped/Adol)03/02/2003,2002,2002INFLUENZA SHOT TIV (INJECT)08/14/2008 IPV (Polio)05/14/2007,03/02/2003Influenza Shot TIV (Inject P-Free)05/11/2016, 05/12/2015,03/19/2014,04/30/2013,03/04/2012Influenza Brihhoa6608/14/2008, 05/14/2007,06/14/2006,04/30/2006Influenza Vaccine, injection, quadrivalent (Preservative-Free)10/01/2019MENINGOCOCCAL CONJUGATE (MCV4P) (MENACTRA) 10/03/2013MMR (Measles, Mumps, Rubella)05/14/2007,09/02/2003Meningococcal Oligosaccharide (MCV4O) (Menveo)04/07/2019,10/03/2013OPV (Polio Historical) 2002,2002Pneumococcal (Peds Only,PCV7)(Prevnar) (Historical) 09/02/2003,03/02/2003,2002,2002Pneumococcal Polysaccharide (PPSV23)(Pneumovax)03/02/2003TDaP (Adol/Adult)10/03/2013Varicella (Varivax) 08/14/2008,09/02/2003 Family History Medical HistoryRelationNameCommentsAsthmaBrotherNo Known ProblemsFatherNo Known ProblemsMotherAsthmaOtherRelationNameStatusCommentsBrotherFatherAliveMotherAlive Other Social History Tobacco UseTypesPacks/DayYears UsedDateSmoking Tobacco: NeverSmokeless Tobacco: Never Tobacco Cessation:Counseling Given: Yes Alcohol UseStandard Drinks/WeekCommentsNo0 (1 standard drink = 0.6 oz pure alcohol)CommentsNoSex and Gender InformationValueDate RecordedSex Assigned at JmatdXankhq47/22/2020 2:50 PM EDTLegal JoqJcymei99/11/2016 1:54 AM EDTGender TddksrzcVhmhmv37/22/2020 2:50 PM EDTSexual OrientationChoose not to rjxxunkz09/22/2020 2:50 PM EDT Last Filed Vital Signs Vital SignReadingTime TakenCommentsBlood Vjefboko454/9706/28/2020 4:26 PM EST Wlcrg088706/28/2020 4:26 PM LIFVceisvutkoc84.9 ??C (98.4 ??F)03/01/2021 11:37 AM EDTRespiratory Hsrr851908/29/2019 4:26 PM ESTOxygen Nynzmcptiq268%06/28/2020 4:26 PM ESTInhaled Oxygen Concentration--Wrsrye28.7 kg (138 lb 3.2 oz)03/01/2021 11:37 AM ESQMitdqf400 cm (5' 3 )03/01/2021 11:37 AM EDTBody Mass Index24.48 03/01/2021 11:37 AM EDT Plan of Treatment Health MaintenanceDue DateLast DoneCommentsSCREENING: HEPATITIS C0 2002 SCREENING:HIV2017SCREENING: EDAKPASUN21/11/2019Vaccines: Meningococcal B (1 of 2 - Standard)2018SCREENING: CUDOCGZISD61/05/202105/11/2019, 10/01/2019, 04/07/2019, Additional history existsHEALTH MAINTENANCE EXAM (ADULT) 2Pap Smear2023VACCINE: TETANUS,DIPHTHERIA BOOSTER (TD BOOSTER) EVERY 10 YEARS/VACCINE: INFLUENZA (#1)5010/01/2019, 05/11/2016, 05/12/2015, Additional history existsVACCINE: COVID-19 ( season)2025VACCINE: HEPATITIS IWoavbrmgi91/18/2003, 2002, 2002 Pneumococcal Vaccine: Pediatrics (0 to 5 Years) and At-Risk Patients (6 to 64 Years)Aged Out09/02/2003, 03/02/2003, 03/02/2003, Additional history existsNo longer eligible based on patient's age to complete this topicVaccines: HIB Jtmxkkxxt73/18/2004, 09/02/2003, 03/02/2003, Additional history existsVaccines: UIXPrirsqyvc96/30/2007, 03/02/2003, 2002, Additional history exists Vaccines: IHWOugzwroznuod42/30/2007, 09/02/2003VACCINE: HEPATITIS ACompleted 08/14/2008, 05/14/2007Vaccines: IoznxzggbPfjkwpzriiaa54/30/2009, 09/02/2003 VACCINE: TETANUS,DIPHTHERIA,PERTUSSIS (TDAP) FIRST DOSE MIRPOHlapwdqqg05/21/2014 Vaccines: PJHVfpdfqdlf16/21/2014, 11/01/2012, 09/03/2012EXERCISE AND NUTRITION COUNSELING,WMSDAjuyckadjttf20/23/2019, 04/07/2019, 12/26/2017, Additional history existsVaccines: ElmtoqxvpfsbsFcnambsaw32/23/2019, 10/03/2013, 10/03/2013 WELLNESS VISIT,TCIVNjiaiwvzdumi18/23/2019, 12/26/2017Vaccines: RotavirusAged Out No longer eligible based on patient's age to complete this topic Care Teams Team MemberRelationshipSpecialtyStart DateEnd Date Mark Low MD PCP - YltxkwdWisrwdzsti74/23/20
== END 2025-05-16 13:56 | disposition home or self-care (01) ==
LOC: ER 13:35
PROVIDERS: Emergency Provider Emergency Medicine
DX: S00.83XA Contusion of other part of head, initial encounter (principal); V47.6XXA Car passenger injured in collision with fixed or stationary object in traffic accident, initial encounter; T14.8XXA Other injury of unspecified body region, initial encounter
CPT/HCPCS: 99283